=== PATIENT | male | born 1955 | race Caucasian/White ===

== ENCOUNTER 2016-09-10 10:52 | Emergency (ER) | payer SELFPAY ==
--- NOTE | 2016-09-10 12:05 | RAD ---
FRONTAL VIEW CHEST COMPARISON: None available. INDICATION: Near syncope, weakness. FINDINGS: No consolidation, effusion, or pneumothorax. Cardiac silhouette is within normal limits of size. L humberto overlie the chest limiting detail. IMPRESSION: No focal consolidation. POS: LAURA
--- NOTE | 2016-09-10 13:59 | ERRECORD ---
[facility] EMERGENCY RECORD HPI SYNCOPE (12:04 AGRE) CHIEF COMPLAINT: Patient presents for evaluation of near syncope. HISTORIAN: History provided by patient, WOOZY WHEN HE STANDS UP FOR 2 DAYS. NO COREA, CP, SOB, ABDOMINAL PAIN. SAYS HAVING CHILLS BUT NOT FEVER. NO VISUAL CHANGES OR PROBLEMS USING HIS ARMS OR LEGS. DENIES NUMBNESS OR TINGLING. GENERALIZED WEAKNESS. HX OF DIABETES ON ORAL MEDS, HIGH CHOLERTEROL, HYPERTENSION. DENIES RECENT INJURIES. NO MELENA. LOCATION: No localizing symptoms. QUALITY: Denies blackout, Symptom quality described as lightheadedness. SEVERITY: Maximum severity of symptoms severe, Currently symptoms are severe. TIME COURSE: Gradual onset of symptoms, There has been no change in the patient's symptoms over time. ASSOCIATED WITH: No associated abdominal pain, No associated back pain, No associated change in speech, No associated chest pain, No associated diarrhea, No associated diaphoresis, No associated fall, No associated focal deficit, No associated GI Bleed, No associated headache, No associated pleuritic chest pain, No associated recent surgery, No associated voodoo of normal mental status, No associated shortness of breath, No associated seizures, No associated tachycardia, No associated vomiting, Associated with weakness, Denies any other complaints. EXACERBATED BY: Patient's condition exacerbated by position. RELIEVED BY: Patient's condition relieved by LAYING DOWN. RISK FACTORS MALE: Abdominal aortic aneurysm risk factors, include age over 40 years, no history of abdominal aortic aneurysm, Thoracic aortic dissection risk factors, include hypertension, Coronary artery disease risk factors, include diabetes, include high cholesterol, include hypertension, include smoking. WELLS CRITERIA FOR PE: No clinical signs and symptoms of a DVT (0), Patient does not have, or is likely to not have, a primary diagnosis of PE (0), Patient's heart rate is less than 100 (0), Patient has no history of immobilization within 3 days, nor any surgical history within the past 4 weeks (0), Patient has not had an objectively diagnosed PE or DVT previously (0), Patient does not have hemoptysis (0), Patient has not had treatment for malignancy within the last 6 months, nor palliative (0). ROS (12:07 AGRE) CONSTITUTIONAL: Historian denies chills, denies fever, denies weakness. EYES: Historian denies eye redness, denies vision changes. ENT: Historian denies sore throat, denies stridor. CARDIOVASCULAR: Historian denies chest pain, denies diaphoresis. RESPIRATORY: Historian denies cough, denies shortness of breath. GI: Historian denies abdominal pain, denies nausea, denies vomiting. MUSCULOSKELETAL: Historian denies back pain, denies neck pain. &a-1R&a+25V*p+0X*[id number]*c202B*c15G*c2P*p-0X&a-25V&a+1R Name: Fidel June : 1955 M61 MedRec: [id number] AcctNum: [id number] Prepared: SatSep 10, 2016 12:25 by Interface Page 1 of 4 D [facility] EMERGENCY RECORD SKIN: Historian denies skin changes, denies skin lesions. NEUROLOGIC: Historian denies confusion, reports dizziness, denies focal weakness, denies headache. HEMO/LYMPHATIC: Normal hematologic/lymphatic system review, Historian denies petechiae. PSYCHIATRIC: Negative psychiatric review of systems, Historian denies anxiety. PAST MEDICAL HISTORY (11:59 MSPE) MEDICAL HISTORY: Flu vaccine not up to date, Tetanus immunization up to date, Pneumococcal vaccine not up to date, Past medical history includes history of diabetes, history of hyperlipidemia. high cholesterol, Past medical history includes history of hypertension, history of malignancy. primary site prostate, treated with radiation, also hx of bladder cancer. MALE SURGICAL HISTORY: bladder surgery right eye surgery, Surgical history of tonsillectomy. PSYCHIATRIC HISTORY: No previous psychiatric history. SOCIAL HISTORY: Patient drinks socially, Patient currently uses drugs, abuses marijuana, Patient currently uses tobacco, smokes cigarettes, Patient smokes 1/2 packs per day. KNOWN ALLERGIES No Known Drug Allergies CURRENT MEDICATIONS metFORMIN: TABLET : Strength - 500 mg : ORAL Patient Dose: 1000 mg Oral 2 times a day. (11:54 MSPE) simvastatin: TABLET : Strength - 40 mg : ORAL Patient Dose: 40 mg Oral once a day (in the morning). (11:55 MSPE) BP meds - pt doesn't know names (11:55 MSPE) VITAL SIGNS (11:14 MSPE) VITAL SIGNS: BP: 129/77, Pulse: 97, Resp: 20, Temp: 98.8 (Oral), Pain: 7, O2 sat: 91 on Room Air, Time: 09/10/2016 11:14. PHYSICAL EXAM (12:08 AGRE) CONSTITUTIONAL: Vital signs reviewed, Patient afebrile, Respiratory rate normal, Patient appears non toxic, Patient appears pain free, Patient alert and oriented to person, place and time, NURSES NOTES REVIEWED. HEAD: Head exam included findings of head atraumatic, normocephalic. EYES: Eye exam included findings of eyelids normal to inspection, &a-1R&a+25V*p+0X*r4399P*c202B*c15G*c2P*p-0X&a-25V&a+1R Name: Fidel June : 1955 M61 MedRec: [id number] AcctNum: [id number] Prepared: SatSep 10, 2016 12:25 by Interface Page 2 of 4 pMD [facility] EMERGENCY RECORD Extraocular muscles intact, Conjunctiva normal, Sclera normal. ENT: Ear exam normal, Nose exam normal, Mouth exam normal. NECK: Neck exam normal, Neck exam included findings of normal range of motion, no meningeal signs, no cervical adenopathy. RESPIRATORY CHEST: Respiratory and chest exam normal, Respiratory exam included findings of no respiratory distress, Breath sounds clear, No wheezing, No rales, No rhonchi, Breath sounds not diminished. CARDIOVASCULAR: Cardiovascular exam included findings of heart rate regular rate and rhythm, Heart sounds normal, normal S1, normal S2, no murmurs, no rub, no gallop. ABDOMEN MALE: Abdominal exam normal, Abdominal exam included findings of abdomen nontender, Bowel sounds normal, Liver normal, Spleen normal, no distension, no mass. BACK: Back exam normal, Back exam included findings of normal inspection, range of motion normal. UPPER EXTREMITY: Upper extremity exam included findings of inspection normal, Range of motion normal. LOWER EXTREMITY: Lower extremity exam included findings of inspection normal, Range of motion normal. NEURO: Neuro exam normal, Neuro exam findings include patient oriented to person, place and time, Speech normal, Gait normal, Memory normal, Cranial nerves intact, no focal motor deficits. SKIN: Skin exam included findings of skin warm, dry, and normal in color, VITILIGO. LYMPHATIC: Lymphatic exam normal, Lymphatic exam included findings of cervical nodes normal. PSYCHIATRIC: Psychiatric exam normal, Normal affect. EKG INTERPRETATION (12:14 AGRE) 12 LEAD EKG INTERPRETATION: 12 lead EKG interpreted by Emergency Department Physician at time of study, 12 lead EKG shows normal sinus rhythm, Rate (beats per minute): 98, Conduction normal, ST segments normal, T waves normal, [place] normal, TALL T WAVES V2 - 3 WITH POOR R WAVE PROGRESSION, NO RECIPROCAL CHANGES, OCC PVC'S AND PAC'S. RADIOLOGYINTERPRETATION (12:24 AGRE) BAR POINTER: Preliminary review of x-rays by, Radiologist, NO ACUTE FINDINGS. MEDICATION ADMINISTRATION SUMMARY Drug Name: sodium chloride 0.9 % intravenous, Dose Ordered: 1000 mL, Route: IV Fluid Infusion, Status: Ordered, Time: 11:30 09/10/2016, Detailed record available in Medication Service section. DOCTOR NOTES (12:09 AGRE) TEXT: PATIENT REFUSING ALL LABS, IV, XRAYS. SAYS HE ONLY CAME TO GET HIS BLOOD SUGAR CHECKED. ADVISED OF CONCERNS ABOUT HIS &a-1R&a+25V*p+0X*h0850H*c202B*c15G*c2P*p-0X&a-25V&a+1R Name: Fidel June Lance : 1955 M61 MedRec: [id number] AcctNum: [id number] Prepared: SatSep 10, 2016 12:25 by Interface Page 3 of 4 pMD [facility] EMERGENCY RECORD HEART AND POSSIBLE INFECTION WELL DEHYDRATION SINCE HE HAS ORTHOSTATIC CHANGES. HE SAYS HE DOES NOT WANT ANYTHING ELSE DONE AND NO IV'S BUT WILL TAKE ORAL FLUIDS FOR HYDRATION. ORAL FLUIDS ORDERED FOR HIM AND HE REFUSED THAT SAYING HE HAS A BOTTLE OF WATER AND IS LEAVING. HE GOT OFF THE CART AND DRESSED HIMSELF, AND INSISTED ON LEAVING IMMEDIATELY. HE DID NOT WAIT FOR DISCHARGE INSTRUCTIONS. PATIENT VERY UNCOOPERATIVE. DOES NOT SMELL OF ALCOHOL OR APPEAR IF UNDER THE INFLUENCE OF DRUGS. SPEECH IS CLEAR AND COHERENT AND NO NEURO CHANGES. HE INSIST THAT THIS IS FROM HIS BLOOD SUGAR BEING OFF AND HE JUST WANTED TO HAVE THE BLOOD SUGAR CHECKED SO THAT HE WOULD KNOW WHAT IT WAS. SAYS IT WAS 90 AT HOME. THIS PATIENT SEEMS COMPETENT AND I DO NOT SEE ANY INDICATION TO HOLD HIM AGAINST HIS WILL FOR FURTHER EVALATION. PATIENT STATUS: Patient's status is unchanged since arrival to emergency department. PATIENT PLAN: The patient will be discharged. DATA REVIEWED: Lab data reviewed, Reviewed EKG. PROBLEM LIST No recorded problems DIAGNOSIS FINAL: PRIMARY: NEAR SYNCOPE. (12:24 AGRE) PRIMARY: undtermined, ADDITIONAL: NEAR SYNCOPE. (12:24 MSPE) PRESCRIPTION No recorded prescriptions DISPOSITION PATIENT: Disposition Type: Discharge, Disposition: *Discharge Home, Condition: Unknown. (12:24 AGRE) Disposition Type: Eloped, Disposition: Against Medical Advice, Condition: (none), Patient left the department. (12:24 MSPE) Castellano: AGRE=MD Javad, Floyd MSPE=DOLORES Meyer, Twyla &a-1R&a+25V*p+0X*[id number]*c202B*c15G*c2P*p-0X&a-25V&a+1R Name: Fidel June Lance : 1955 M61 MedRec: [id number] AcctNum: [id number] Prepared: SatSep 10, 2016 12:25 by Interface Page 4 of 4 pMD MTDD
--- NOTE | 2016-09-10 14:02 | PICIS ---
[facility] EMERGENCY RECORD TRIAGE (SatSep 10, 2016 11:18 MSPE) TRIAGE NOTES: near syncope, weakness. Onset two days ago. Chills. (SatSep 10, 2016 11:18 MSPE) PATIENT: NAME: Fidel June, AGE: 61, GENDER: male, : [facility] 1955, TIME OF GREET: SatSep 10, 2016 10:53, PREFERRED LANGUAGE: Turkmen, ETHNICITY: Not or , ECODE BILLING MAP: [facility], SSN: [id number], Zip Code: [address], KG WEIGHT: 81.65, PHONE: , , , PERSON ID: [id number], PCP: Levar Jacobsen /Artis. (SatSep 10, 2016 11:18 MSPE) COMPLAINT: SYNCOPE EPISODE,BODY SWEATS. (SatSep 10, 2016 11:18 MSPE) ADMISSION: URGENCY: 2 Emergent, ADMISSION SOURCE: Home, TRANSPORT: CAR, BED: TRIAGE. (SatSep 10, 2016 11:18 MSPE) PROVIDERS: TRIAGE NURSE: Twyla Meyer RN. (SatSep 10, 2016 11:18 MSPE) VITAL SIGNS: BP 129/77, Pulse 97, Resp 20, Temp 98.8, (Oral), Pain 7, O2 Sat 91, on Room Air, Time 09/10/2016 11:14. (11:14 MSPE) KNOWN ALLERGIES No Known Drug Allergies CURRENT MEDICATIONS metFORMIN: TABLET : Strength - 500 mg : ORAL Patient Dose: 1000 mg Oral 2 times a day. (11:54 MSPE) simvastatin: TABLET : Strength - 40 mg : ORAL Patient Dose: 40 mg Oral once a day (in the morning). (11:55 MSPE) BP meds - pt doesn't know names (11:55 MSPE) VITAL SIGNS (11:14 MSPE) VITAL SIGNS: BP: 129/77, Pulse: 97, Resp: 20, Temp: 98.8 (Oral), Pain: 7, O2 sat: 91 on Room Air, Time: 09/10/2016 11:14. NURSING PROCEDURE: BEDSIDE TESTING (11:33 MSPE) GLUCOSE: Glucose testing indicated for diabetic patient, Capillary blood sample, Result (mg/dl) 175. FOLLOW-UP: After procedure, results given to Dr. Farnsworth. NURSING PROCEDURE: DISCHARGE NOTE (12:10 MSPE) DISCHARGE: Patient signed out against medical advice, ambulating without assistance, Discharge instructions given to patient. NURSING PROCEDURE: EKG CHART (11:18 MSPE) EKG: EKG indicated for near syncope, 12 lead EKG performed on the left chest. FOLLOW-UP: After procedure, EKG for interpretation given to &a-1R&a+25V*p+0X*e4830D*c202B*c15G*c2P*p-0X&a-25V&a+1R Name: Fidel June : 1955 M61 MedRec: [id number] AcctNum: [id number] Prepared: SatSep 10, 2016 12:25 by Interface Page 1 of 7 pMD [facility] EMERGENCY RECORD Javad. NURSING PROCEDURE: NURSE NOTES NURSES NOTES: Notes: Pt refusing to have any blood drawn or IV start "I don't like needles". Wants to leave. His girlfriend brought him but no longer here. Dr Farnsworth made aware. (11:33 MSPE) Notes: Did allow orthostatic VS to be done. Results to .. Will talk with pt. (11:40 MSPE) Notes: Pt unwilling to stay for further eval. Refuses to stay for PO fluid eval. Did agree to sign AMA form. DC'd ambulatory from dept. (12:10 MSPE) NURSING PROCEDURE: ORTHOSTATIC VITAL SIGNS (11:44 MSPE) ORTHOSTATIC VITAL SIGNS: Lying:, Blood pressure: 127/72, Pulse: 92, Sitting:, Blood pressure: 120/68, Pulse: 101, no dizziness, Standing:, Blood pressure: 107/69, Pulse: 106, no dizziness. ORDER DETAILS Order Name: B type Natriuretic Peptide, Status: Active, Time: 11:30 09/10/2016, User: YUNIOR, - Ordered for: MD Farnsworth Andrea, - Entered by: MD Farnsworth Andrea - SatSep 10, 2016 11:30, - Quantity: 1, Order Name: BLOOD GLUCOSE MONITOR, Status: Done, Time: 11:34 09/10/2016, User: [email or web address], - Ordered for: MD Farnsworth Andrea, - Entered by: DOLORES Meyer Marilyn - Vern Sep 10, 2016 11:34, - Quantity: 1, Order Name: EMPLOYMENT SPECIALIST/PROGRAM MANAGER ED, Status: Done, Time: 11:34 09/10/2016, User: [email or web address], - Ordered for: MD Farnsworth Andrea, - Entered by: MD Farnsworth Andrea - Vern Sep 10, 2016 11:30, - Quantity: 1, Order Name: Cardiac Profile w/CKMB & Troponin - I, Status: Active, Time: 11:30 09/10/2016, User: YUNIOR, - Ordered for: MD Farnsworth Andrea, - Entered by: MD Farnsworth Andrea - Vern Sep 10, 2016 11:30, - Quantity: 1, Order Name: CBC with Differential, Status: Active, Time: 11:09/10/2016, User: YUNIOR, - Ordered for: MD Farnsworth Andrea, - Entered by: MD Farnsworth Andrea - Vern Sep 10, 2016 11:30, - Quantity: 1, Order Name: Comprehensive Metabolic Panel, Status: Active, Time: 11:30 09/10/2016, User: YUNIOR, - Ordered for: MD Farnsworth Andrea, - Entered by: MD Farnsworth Andrea - Vern Sep 10, 2016 11:30, &a-1R&a+25V*p+0X*d7021E*c202B*c15G*c2P*p-0X&a-25V&a+1R Name: Fidel June : 1955 M61 MedRec: [id number] AcctNum: [id number] Prepared: SatSep 10, 2016 12:25 by Interface Page 2 of 7 D [facility] EMERGENCY RECORD - Quantity: 1, Order Name: EKG 12 Lead in Emergency Room, Status: Active, Time: 11:30 09/10/2016, User: YUNIOR, - Ordered for: MD Farnsworth Andrea, - Entered by: MD Farnsworth Andrea - Vern Sep 10, 2016 11:30, - Quantity: 1, Order Name: Influenza A&B Ag Screen, Status: Active, Time: 11:30 09/10/2016, User: YUNIOR, - Ordered for: MD Farnsworth Andrea, - Entered by: MD Farnsworth Andrea - Mon Sep 10, 2016 11:30, - Quantity: 1, Order Name: Lactic Acid with repeat, Status: Active, Time: 1109/10/2016, User: YUNIOR, - Ordered for: MD Farnsworth Andrea, - Entered by: MD Farnsworth Andrea - Mon Sep 10, 2016 11:30, - Quantity: 1, Order Name: Miscellaneous Nurse Order(s), Status: Active, Time: 1109/10/2016, User: YUNIOR, - Ordered for: MD Farnsworth Andrea, - Entered by: MD Farnsworth Andrea - Mon Sep 10, 2016 11:30, - Quantity: 1, Order Name: Miscellaneous Nurse Order(s), Status: Active, Time: 12:04 09/10/2016, User: YUNIOR, - Ordered for: MD Farnsworth Andrea, - Entered by: MD Farnsworth Andrea - Mon Sep 10, 2016 12:04, - Quantity: 1, Order Name: SALINE LOCK, Status: Active, Time: 09/10/2016, User: YUNIOR, - Ordered for: MD Farnsworth Andrea, - Entered by: MD Farnsworth Andrea - Mon Sep 10, 2016 11:30, - Quantity: 1, Order Name: Urinalysis w/ Rflx Microscopic, Status: Active, Time: 09/10/2016, User: YUNIOR, - Ordered for: MD Farnsworth Andrea, - Entered by: MD Farnsworth Andrea - Mon Sep 10, 2016 11:30, - Quantity: 1, Order Name: XR Chest 1 View Portable, Status: Active, Time: 09/10/2016, User: YUNIOR, - Ordered for: MD Farnsworth Andrea, - Entered by: MD Farnsworth Andrea - Mon Sep 10, 2016 11:30, - Quantity: 1. MEDICATION ADMINISTRATION SUMMARY Drug Name: sodium chloride 0.9 % intravenous, Dose Ordered: 1000 mL, Route: IV Fluid Infusion, Status: Ordered, Time: 1109/10/2016, Detailed record available in Medication Service section. MEDICATION SERVICE (11:30 YUNIOR) sodium chloride 0.9 % intravenous: Order: sodium chloride 0.9 % &a-1R&a+25V*p+0X*v9760L*c202B*c15G*c2P*p-0X&a-25V&a+1R Name: Fidel June : 1955 M61 MedRec: [id number] AcctNum: [id number] Prepared: SatSep 10, 2016 12:25 by Interface Page 3 of 7 pMD [facility] EMERGENCY RECORD intravenous (0.9 % sodium chloride) - Dose: 1000 mL : IV Fluid Infusion Ordered by: Floyd Farnsworth MD Entered by: Floyd Farnsworth MD SatSep 10, 2016 11:30 . HPI SYNCOPE (12:04 AGRE) CHIEF COMPLAINT: Patient presents for evaluation of near syncope. HISTORIAN: History provided by patient, WOOZY WHEN HE STANDS UP FOR 2 DAYS. NO COREA, CP, SOB, ABDOMINAL PAIN. SAYS HAVING CHILLS BUT NOT FEVER. NO VISUAL CHANGES OR PROBLEMS USING HIS ARMS OR LEGS. DENIES NUMBNESS OR TINGLING. GENERALIZED WEAKNESS. HX OF DIABETES ON ORAL MEDS, HIGH CHOLERTEROL, HYPERTENSION. DENIES RECENT INJURIES. NO MELENA. LOCATION: No localizing symptoms. QUALITY: Denies blackout, Symptom quality described as lightheadedness. SEVERITY: Maximum severity of symptoms severe, Currently symptoms are severe. TIME COURSE: Gradual onset of symptoms, There has been no change in the patient's symptoms over time. ASSOCIATED WITH: No associated abdominal pain, No associated back pain, No associated change in speech, No associated chest pain, No associated diarrhea, No associated diaphoresis, No associated fall, No associated focal deficit, No associated GI Bleed, No associated headache, No associated pleuritic chest pain, No associated recent surgery, No associated scientologist of normal mental status, No associated shortness of breath, No associated seizures, No associated tachycardia, No associated vomiting, Associated with weakness, Denies any other complaints. EXACERBATED BY: Patient's condition exacerbated by position. RELIEVED BY: Patient's condition relieved by LAYING DOWN. RISK FACTORS MALE: Abdominal aortic aneurysm risk factors, include age over 40 years, no history of abdominal aortic aneurysm, Thoracic aortic dissection risk factors, include hypertension, Coronary artery disease risk factors, include diabetes, include high cholesterol, include hypertension, include smoking. WELLS CRITERIA FOR PE: No clinical signs and symptoms of a DVT (0), Patient does not have, or is likely to not have, a primary diagnosis of PE (0), Patient's heart rate is less than 100 (0), Patient has no history of immobilization within 3 days, nor any surgical history within the past 4 weeks (0), Patient has not had an objectively diagnosed PE or DVT previously (0), Patient does not have hemoptysis (0), Patient has not had treatment for malignancy within the last 6 months, nor palliative (0). ROS (12:07 AGRE) CONSTITUTIONAL: Historian denies chills, denies fever, denies weakness. EYES: Historian denies eye redness, denies vision changes. ENT: Historian denies sore throat, denies stridor. &a-1R&a+25V*p+0X*n6185B*c202B*c15G*c2P*p-0X&a-25V&a+1R Name: iFdel June : 1955 M61 MedRec: [id number] AcctNum: [id number] Prepared: SatSep 10, 2016 12:25 by Interface Page 4 of 7 pMD [facility] EMERGENCY RECORD CARDIOVASCULAR: Historian denies chest pain, denies diaphoresis. RESPIRATORY: Historian denies cough, denies shortness of breath. GI: Historian denies abdominal pain, denies nausea, denies vomiting. MUSCULOSKELETAL: Historian denies back pain, denies neck pain. SKIN: Historian denies skin changes, denies skin lesions. NEUROLOGIC: Historian denies confusion, reports dizziness, denies focal weakness, denies headache. HEMO/LYMPHATIC: Normal hematologic/lymphatic system review, Historian denies petechiae. PSYCHIATRIC: Negative psychiatric review of systems, Historian denies anxiety. PAST MEDICAL HISTORY (11:59 MSPE) MEDICAL HISTORY: Flu vaccine not up to date, Tetanus immunization up to date, Pneumococcal vaccine not up to date, Past medical history includes history of diabetes, history of hyperlipidemia. high cholesterol, Past medical history includes history of hypertension, history of malignancy. primary site prostate, treated with radiation, also hx of bladder cancer. MALE SURGICAL HISTORY: bladder surgery right eye surgery, Surgical history of tonsillectomy. PSYCHIATRIC HISTORY: No previous psychiatric history. SOCIAL HISTORY: Patient drinks socially, Patient currently uses drugs, abuses marijuana, Patient currently uses tobacco, smokes cigarettes, Patient smokes 1/2 packs per day. PHYSICAL EXAM (12:08 AGRE) CONSTITUTIONAL: Vital signs reviewed, Patient afebrile, Respiratory rate normal, Patient appears non toxic, Patient appears pain free, Patient alert and oriented to person, place and time, NURSES NOTES REVIEWED. HEAD: Head exam included findings of head atraumatic, normocephalic. EYES: Eye exam included findings of eyelids normal to inspection, Extraocular muscles intact, Conjunctiva normal, Sclera normal. ENT: Ear exam normal, Nose exam normal, Mouth exam normal. NECK: Neck exam normal, Neck exam included findings of normal range of motion, no meningeal signs, no cervical adenopathy. RESPIRATORY CHEST: Respiratory and chest exam normal, Respiratory exam included findings of no respiratory distress, Breath sounds clear, No wheezing, No rales, No rhonchi, Breath sounds not diminished. CARDIOVASCULAR: Cardiovascular exam included findings of heart rate regular rate and rhythm, Heart sounds normal, normal S1, normal S2, no murmurs, no rub, no gallop. ABDOMEN MALE: Abdominal exam normal, Abdominal exam included &a-1R&a+25V*p+0X*z9091E*c202B*c15G*c2P*p-0X&a-25V&a+1R Name: Fidel June Lance : 1955 M61 MedRec: [id number] AcctNum: [id number] Prepared: SatSep 10, 2016 12:25 by Interface Page 5 of 7 D [facility] EMERGENCY RECORD findings of abdomen nontender, Bowel sounds normal, Liver normal, Spleen normal, no distension, no mass. BACK: Back exam normal, Back exam included findings of normal inspection, range of motion normal. UPPER EXTREMITY: Upper extremity exam included findings of inspection normal, Range of motion normal. LOWER EXTREMITY: Lower extremity exam included findings of inspection normal, Range of motion normal. NEURO: Neuro exam normal, Neuro exam findings include patient oriented to person, place and time, Speech normal, Gait normal, Memory normal, Cranial nerves intact, no focal motor deficits. SKIN: Skin exam included findings of skin warm, dry, and normal in color, VITILIGO. LYMPHATIC: Lymphatic exam normal, Lymphatic exam included findings of cervical nodes normal. PSYCHIATRIC: Psychiatric exam normal, Normal affect. EVENTS TRANSFER: Triage to Emergency Triage. (SatSep 10, 2016 11:18 MSPE) Emergency Triage to Emergency Room -02. (11:30 MSPE) Removed from Emergency Emergency Room -02. (12:24 MSPE) RADIOLOGYINTERPRETATION (12:24 AGRE) PLASTERER FOREMAN: Preliminary review of x-rays by, Radiologist, NO ACUTE FINDINGS. EKG INTERPRETATION (12:14 AGRE) 12 LEAD EKG INTERPRETATION: 12 lead EKG interpreted by Emergency Department Physician at time of study, 12 lead EKG shows normal sinus rhythm, Rate (beats per minute): 98, Conduction normal, ST segments normal, T waves normal, [place] normal, TALL T WAVES V2 - 3 WITH POOR R WAVE PROGRESSION, NO RECIPROCAL CHANGES, OCC PVC'S AND PAC'S. O2SAT INTERPRETATION (12:08 AGRE) O2SAT: Continuous pulse oximetry, Oxygen saturation 91%, on room air, Oxygen saturation interpretation: Normal, No intervention required. DOCTOR NOTES (12:09 AGRE) TEXT: PATIENT REFUSING ALL LABS, IV, XRAYS. SAYS HE ONLY CAME TO GET HIS BLOOD SUGAR CHECKED. ADVISED OF CONCERNS ABOUT HIS HEART AND POSSIBLE INFECTION WELL DEHYDRATION SINCE HE HAS ORTHOSTATIC CHANGES. HE SAYS HE DOES NOT WANT ANYTHING ELSE DONE AND NO IV'S BUT WILL TAKE ORAL FLUIDS FOR HYDRATION. ORAL FLUIDS ORDERED FOR HIM AND HE REFUSED THAT SAYING HE HAS A BOTTLE OF WATER AND IS LEAVING. HE GOT OFF THE CART AND DRESSED HIMSELF, AND INSISTED ON LEAVING IMMEDIATELY. HE DID NOT WAIT FOR DISCHARGE INSTRUCTIONS. PATIENT VERY UNCOOPERATIVE. DOES NOT SMELL OF ALCOHOL OR APPEAR IF &a-1R&a+25V*p+0X*u6492K*c202B*c15G*c2P*p-0X&a-25V&a+1R Name: Fidel June Lance : 1955 M61 MedRec: [id number] AcctNum: [id number] Prepared: SatSep 10, 2016 12:25 by Interface Page 6 of 7 pMD [facility] EMERGENCY RECORD UNDER THE INFLUENCE OF DRUGS. SPEECH IS CLEAR AND COHERENT AND NO NEURO CHANGES. HE INSIST THAT THIS IS FROM HIS BLOOD SUGAR BEING OFF AND HE JUST WANTED TO HAVE THE BLOOD SUGAR CHECKED SO THAT HE WOULD KNOW WHAT IT WAS. SAYS IT WAS 90 AT HOME. THIS PATIENT SEEMS COMPETENT AND I DO NOT SEE ANY INDICATION TO HOLD HIM AGAINST HIS WILL FOR FURTHER EVALATION. PATIENT STATUS: Patient's status is unchanged since arrival to emergency department. PATIENT PLAN: The patient will be discharged. DATA REVIEWED: Lab data reviewed, Reviewed EKG. PROBLEM LIST No recorded problems DIAGNOSIS FINAL: PRIMARY: NEAR SYNCOPE. (12:24 AGRE) PRIMARY: undtermined, ADDITIONAL: NEAR SYNCOPE. (12:24 MSPE) DISPOSITION PATIENT: Disposition Type: Discharge, Disposition: *Discharge Home, Condition: Unknown. (12:24 AGRE) Disposition Type: Eloped, Disposition: Against Medical Advice, Condition: (none), Patient left the department. (12:24 MSPE) PRESCRIPTION No recorded prescriptions ADMIN DIGITAL SIGNATURE: MD Farnsworth Andrea. (12:16 AGRE) MD Farnsworth Andrea. (12:24 AGRE) Castellano: AGRE=MD Farnsworth Andrea MSPE=DOLORES Meyer, Twyla &a-1R&a+25V*p+0X*k4262D*c202B*c15G*c2P*p-0X&a-25V&a+1R Name: Fidel June Lance : 1955 M61 MedRec: [id number] AcctNum: [id number] Prepared: SatSep 10, 2016 12:25 by Interface Page 7 of 7 pMD [facility]
== END 2016-09-10 12:10 | disposition left against medical advice (07) ==
LOC: NAV ERS 10:52
DX: R55 Syncope and collapse (principal); E11.9 Type 2 diabetes mellitus without complications; E78.00 Pure hypercholesterolemia, unspecified; E78.5 Hyperlipidemia, unspecified; F17.210 Nicotine dependence, cigarettes, uncomplicated; I10 Essential (primary) hypertension
CPT/HCPCS: 36416; 71010; 93005